=== PATIENT | male | born 1950 | race Caucasian/White ===

== ENCOUNTER 2025-01-26 18:05 | Emergency (ER) | payer MEDICARE, MEDICAID, SELFPAY ==
[2025-01-26 18:16] VITALS: BP 136/85; PULSE 90; TEMP 36.5; O2SAT 96; BMI 36.6
--- NOTE | 2025-01-26 18:24 | ECG_ITS ---
[facility]: 2025-[facility]26 Pat Name: Shree Hernandez Department: Room: Gender: Male Print Buyer: : 1950 Requested By: Aida Jennings Order Number: [id number] Blaine MD: Manpreet Hernandez M.D. Measurements Intervals [place] Rate: 95 P: 33 [place]: 150 QRS: 9 QRSD: 94 T: 32 QT: 344 QTc: 433 Interpretive Statements SINUS RHYTHM WITH OCCASIONAL SUPRAVENTRICULAR PREMATURE COMPLEXES No previous ECG available for comparison Electronically Signed On 01-26-2025 19:14:34 CDT by Manpreet Hernandez M.D. [email or web address]
[2025-01-26] MEDS: ondansetron 2 mg/ML SDV 2 mL 4 MG IVP (18:37)
[2025-01-26 18:43] LABS: Hematocrit 47.9 % (37-53); Hemoglobin 16.60 g/dL (11.27-16.99); Mean Corpuscular HGB Conc 34.7 g/dL (30-55); Mean Corpuscular Hemoglobin 30.4 pg (27-33); Mean Corpuscular Volume 87.7 fl (82-101); Red Blood Count 5.46 10^6/uL (3.85-5.65); White Blood Count 8.30 10^3/uL (3.29-11.43)
[2025-01-26 18:44] LABS: Nucleated Red Blood Cells % 0 %; Platelet Count 98 10^3/cmm (157-399)
[2025-01-26 18:45] VITALS: BP 129/81; PULSE 93; O2SAT 92
--- NOTE | 2025-01-26 18:51 | W.ED.NAVMDI ---
HPI - Nausea/Vomiting/Diarrhea General: Chief complaint: Nausea/Vomiting/Diarrhea Stated complaint: Sent over by PCP Time Seen by Provider: 01/26/25 18:24 History of Present Illness: Patient is a 74-year-old gentleman with history of HTN, HLD, sees primary Dr. Soto that presented to the emergency room with nausea, vomiting, diarrhea since Saturday, 3 days ago. Patient denies recent antibiotics. Patient has not had any fevers. No sick contacts. Initiated symptoms: Saturday Patient did not have nausea and vomiting today. He had loose stool x 1. No abdominal pain. No abdominal surgeries. Oxygen saturation in the room is 91% on room air. Associated nausea: Yes Associated symtoms: Reports nausea; Denies change in vision, chest pain, headache(s) or palpitations Related Data Previous Rx's ?Medication ?Instructions ?Recorded ondansetron 4 mg disintegrating 4 mg PO Q8H PRN nausea and 01/26/25 tablet vomiting 4 days #14 tabs Allergies Allergy/AdvReac Type Severity Reaction Status Date / Time No Known Allergies Allergy Verified 01/26/25 18:22 Review of Systems General: Reports: 10 or more systems reviewed and unremarkable except in HPI and below Const: Denies: fever(s) or chills Eyes: Denies: change in vision or blurry vision ENMT: Denies: throat pain or post nasal drip Card: Denies: chest pain or palpitations Resp: Denies: dyspnea or non-productive cough GI: Reports: nausea, vomiting and diarrhea; Denies: abdominal pain or belching : Denies: flank pain or difficulty urinating (Somewhat chronically given BPH.) Musc: Denies: neck pain, back pain or joint swelling Skin/Breast: Denies: rash or pruritus Neuro: Denies: headache(s) or numbness in extremities Physical Exam Const: COMMON NORMALS: no acute distress, average body habitus and patient oriented x3 HENMT: COMMON NORMALS: normocephalic, atraumatic and hearing grossly normal bilaterally HEAD & SCALP: normocephalic and atraumatic Neck/C-Spine: COMMON NORMALS: full ROM and no lymphadenopathy Lymph: LYMPHATIC: no lymphadenopathy noted Chest: COMMONS NORMALS: normal inspection of the chest and normal palpation of entire chest wall Resp: COMMON NORMALS: normal respiratory effort, No retractions and clear to auscultation bilaterally AUSCULTATION: clear to auscultation bilaterally Cardio: COMMON NORMALS: regular rate and regular rhythm RATE: regular rate RHYTHM: regular rhythm GI: COMMON NORMALS: Normal to inspection, nondistended, normoactive bowel sounds present, Soft to palpation, non-tender and No hepatosplenomegaly present PALPATION: Yes Soft to palpation and Yes No hepatosplenomegaly present : COMMON NORMALS: Yes no CVA tenderness BLADDER/KIDNEY EXAM: Yes no CVA tenderness Back/Pelvis: COMMON NORMALS: no CVA tenderness and thoracic and lumbar spine normal to inspection Extremity: COMMON NORMALS: normal to inspection, full ROM and capillary refill normal Neuro: COMMON NORMALS: patient oriented x3 Psych: COMMON NORMALS: mental status grossly normal, Normal thought process present and cooperative THOUGHT PROCESS: Normal thought process present Course Vital Signs: Vital signs: Vital Signs Temperature 97.7 F 01/26/25 18:16 Pulse Rate 88 01/26/25 20:13 Blood Pressure 124/76 01/26/25 20:13 Pulse Oximetry 94 01/26/25 20:13 Oxygen Delivery Me thod Room Air 01/26/25 19:00 MDM - Nausea/Vomiting/Diarrhea Medical Decision Making Patient is 19-year-old male that comes in with nausea, vomiting x 3 days. He has not had any recent antibiotics or sick contact. On physical exam findings, only notable is his oxygen saturation is a little bit on the lower side. His Mallampati is a 3 however. This could be chronic and associated with sleep apnea. Will do further workup with acute abdominal series even though he does not have abdominal pain to ensure there is no additional etiology. No recent colonoscopy Medical Records I reviewed the patient's medical records. Lab Data 01/26/25 18:30 01/26/25 18:30 Radiology Impressions Chest/Abdomen X-ray 01/26/25 18:55 IMPRESSION: No acute findings. Laboratory Results WBC 8.30 10^3/uL (3.29-11.43) 01/26/25 18:30 RBC 5.46 10^6/uL (3.85-5.65) 01/26/25 18:30 Hgb 16.60 g/dL (11.27-16.99) 01/26/25 18:30 Hct 47.9 % (37-53) 01/26/25 18:30 MCV 87.7 fl (82-101) 01/26/25 18: MCH 30.4 pg (27-33) 01/26/25 18: MCHC 34.7 g/dL (30-55) 01/26/25 18: RDW 13.6 % (12.1-15.1) 01/26/25 18:30 Plt Count 98 10^3/cmm (157-399) L 01/26/25 18: MPV 11.3 fL (7.4-10.4) H 01/26/25 18:30 Neut % (Auto) 75.4 % 01/26/25 18: Lymph % (Auto) 12.0 % 01/26/25 18: Whiteside % (Auto) 10.8 % 01/26/25 18: Eos % (Auto) 0.7 % 01/26/25 18: Baso % (Auto) 0.4 % 01/26/25 18: Neut # (Auto) 6.25 10^3/uL (1.8-7.7) 01/26/25 18:30 Lymph # (Auto) 1.0 10^3/uL (0.8-4.8) 01/26/25 18: Whiteside # (Auto) 0.9 10^3/uL (0.2-0.9) 01/26/25 18:30 Eos # (Auto) 0.1 10^3/uL (0.0-0.8) 01/26/25 18: Baso # (Auto) 0.0 10^3/uL (0.0-0.1) 01/26/25 18: Nucleated RBC % (auto) 0 % 01/26/25 18: Nucleated RBCs # 0.0 /100WBC 01/26/25 18:30 Sodium 131 mmol/L (136-145) L 01/26/25 18: Potassium 3.5 mmol/L (3.5-5.1) 01/26/25 18:30 Chloride 95 mmol/L (98-107) L 01/26/25 18:30 Carbon Dioxide 19 mmol/L (22-29) L 01/26/25 18: Anion Gap 20.5 (5-19) H 01/26/25 18: BUN 24 mg/dL (8-23) H 01/26/25 18: Creatinine 1.1 mg/dL (0.7-1.2) 01/26/25 18: GFR Calculation Not Reportable 01/26/25 18: Glucose 165 mg/dL (65-115) H 01/26/25 18:30 Calculated Osmolality 280 mOsm/kg (285-295) L 01/26/25 18: Lactic Acid 1.3 mmol/L (0.5-2.2) 01/26/25 18: Calcium 9.4 mg/dL (8.5-10.5) 01/26/25: Magnesium 2.1 mg/dL (1.7-2.3) 01/26/25: Total Bilirubin 1.1 mg/dL (0.15-1.2) 01/26/25 18: AST 32 U/L (0-40) 01/26/25 18: ALT 45 U/L (0-41) H 01/26/25 18: Alkaline Phosphatase 113 U/L (40-130) 01/26/25 18: Ammonia 37 umol/L (16-60) 01/26/25 18: NT-Pro-B Natriuret Pep 152 pg/mL (0-125) H 01/26/25 18: Total Protein 7.4 g/dL (6.6-8.7) 01/26/25 18: Albumin 3.9 g/dL (3.5-5.2) 01/26/25 18: Globulin 3.5 g/dL (1.3-4.6) 01/26/25 18: Lipase 24 U/L (13-60) 01/26/25 18: Procalcitonin 0.34 ng/mL (0-0.5) 01/26/25 18: Urine Color Lindsay (Yellow) A 01/26/25 Urine Appearance Clear (CLEAR) 01/26/25 Urine pH 5.5 (5-7) 01/26/25: Ur Specific Kent 1.036 (1.005-1.030) H 01/26/25: Urine Protein 1+ (Negative) A 10/21/25 19:25 Urine Glucose (UA) 3+ (Normal) H 01/26/25 19: Urine Ketones 1+ (Negative) H 01/26/25 19:25 Urine Blood Negative (Negative) 01/26/25 19: Urine Nitrate Negative (Negative) 01/26/25 19: Urine Bilirubin Negative (Negative) 01/26/25 19: Urine Urobilinogen 1.0 mg/dL (Negative) 01/26/25 19: Ur Leukocyte Esterase Negative (Negative) 01/26/25 19:25 Urine RBC 0-2 /hpf (0-2) 01/26/25 19:25 Urine WBC 0-5 /hpf (0-5) 01/26/25 19:25 Ur Squamous Epith Cells 0-5 /hpf (0-5) 01/26/25 19: Amorphous Sediment Not Reportable 01/26/25 19:25 Urine Bacteria None seen /hpf (NONE) 01/26/25 19: Hyaline Casts 12.41 /lpf 01/26/25 19:25 Influenza A (PCR) Negative (Negative) 01/26/25 18:46 Influenza Type B (PCR) Negative (Negative) 01/26/25 18:46 RSV (PCR) Negative (Negative) 01/26/25 18:46 SARS-CoV-2 (PCR) Negative (Negative) 01/26/25 18:46 XR interpretation done by ED provider, pending radiology final review ED provider radiology interpretation(s): no acute changes EKG Data EKG 1: Interpretation: Normal sinus rhythm, normal axis, PAC, no ST segment elevation, QTc 397, rate 95 Discharge Plan Discharge Patient Disposition: Home Clinical Impression: Gastroenteritis, Thrombocytopenia, Metabolic acidosis Condition: Stable Prescriptions: New ondansetron 4 mg tablet,disintegrating 4 mg PO Q8H PRN (Reason: nausea and vomiting) 4 Days Qty: 14 0RF Discharge Orders: Discharge ED (Routine); Ordered 01/26/25 Ordered By: Aida Jennings Referrals: Leonard Soto DO [Primary Care Provider, [facility]] - 1-3 days Referral Note: f/up CBC Clinical Impression: Thrombocytopenia Discharge Diet: Clear Liquid Patient Instructions: Clear Liquid Diet, Patient Portal & [place] Instructions Activity Restrictions/Additional Instructions: - Only clear liquid diet for 24 hours. If you tolerate the clear liquid diet for 24 hours, you may advance it to a full liquid diet, then a bland diet. - Zofran has been sent to the pharmacy. Follow the label instructions. - Return to ED with worsening nausea, vomiting, diarrhea. - You need to follow-up with your primary care physician regarding today's visit. Please call tomorrow to make an appointment for follow-up -You do need to call them tomorrow to follow-up on your CBC before the weekend - Debrox can be obtained [id number] for your right ear clogged up to help with your selective hearing :) Print Language: Amharic Coding Level of Care Code ED Government Teacher for Derek Cuellar
--- OUTSIDE RECORDS SUMMARY | 2025-01-26 18:54 | XMS_ITS | Clinical Summary ---
Author Organization [facility] Address [address] [place] [address] Phone Care Team Providers Care Production Team Manager Name Role Phone Leonard Soto Primary Care Provider +1- [phone] Allergies Active Allergy Reactions Criticality Noted Date Comments Penicillins Unknown 04/19/2009 Medications atenolol (TENORMIN) 50 mg Oral tablet Take 50 mg by mouth daily. Active tramadol (ULTRAM) 50 mg Oral tablet Take 1 Tab by mouth every 6 hours as needed for Pain. 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 Gender Identity Not on file Sexual Orientation Not on file Last Filed Vital Signs Vital Sign Reading Time Taken Comments Blood Pressure 168/76 04/19/2009 1:44 PM RESIDENTIAL CASE MANAGER Pulse 59 04/19/2009 1:44 PM RESIDENTIAL CASE MANAGER Temperature 37.1 C (98.7 F) 04/19/2009 12:35 PM RESIDENTIAL CASE MANAGER Respiratory Rate 20 04/19/2009 1:44 PM RESIDENTIAL CASE MANAGER Oxygen Saturation 97% 04/19/2009 1:44 PM RESIDENTIAL CASE MANAGER Inhaled Oxygen Concentration - - Weight 154.2 kg (340 lb) 04/19/2009 12:35 PM RESIDENTIAL CASE MANAGER Height 177.8 cm (5' 10 ) 04/19/2009 12:35 PM RESIDENTIAL CASE MANAGER Body Mass Index 48.78 04/19/2009 12:35 PM RESIDENTIAL CASE MANAGER Plan of Treatment Health Maintenance Due Date Last Done Comments DTAP/TDAP/TD VACCINES (1 - Tdap) 07/12/1971 COLORECTAL SCREENING 1997 Colorectal Cancer Screening 1997 FIT-DNA Q 3 years 1997 FIT/FOBT Q 1 year 1997 Flex Sig/CT Colonography Q 5 years 1997 PNEUMOCOCCAL VACCINE 50+ YEARS (1 of 1 - PCV) 07/12/19 03 ZOSTER VACCINE (1 of 2) 2002 INFLUENZA VACCINE (#1) 2024 RSV VACCINE (60+ or ) (1 - 1-dose 75+ series) 07/12/2027 Insurance MEDICAID [place] Care Teams Production Team Manager Relationship Specialty Start Date End Date Leonard Soto DO PCP - General 04/19/09
--- OUTSIDE RECORDS SUMMARY | 2025-01-26 18:54 | XMS_ITS | Clinical Summary ---
Author Organization [facility] Address [address] Attn: [place] [address] Care Team Providers Care Metal Finish Inspector Name Role Phone Leonard Soto DO Primary Care Provider +1- [phone] Allergies Active Allergy Reactions Criticality Noted Date Comments Penicillins Unknown 04/19/2009 Medications No known medications Active Problems No known active problems Social History Tobacco Use Types Packs/Day Years Used Date Smoking Tobacco: Never Assessed Sex and Gender Information Value Date Recorded Sex Assigned at Not on file Legal Sex Male 10:59 AM TECHNICAL SALES DIRECTOR Gender Identity Not on file Sexual Orientation Not on file Plan of Treatment Health Maintenance Due Date [...] - 1-dose 75+ series) 07/12/2027 Insurance MEDICAID [facility] DUAL COMPLETE PPO [facility] [id number] Care Teams Metal Finish Inspector Relationship Specialty Start Date End Date Leonard Soto DO [address] [place] [address] PCP - General 04/19/09
[2025-01-26 18:55] LABS: Lactic Sepsis W/Reflex 1.3 mmol/L (0.5-2.2)
--- NOTE | 2025-01-26 18:55 | XRR_ITS ---
PROCEDURE INFORMATION: Exam: XR Abdomen Exam date and time: 01/26/2025 7:05 PM Age: 74 years old Clinical indication: Nausea and vomiting; Additional info: N/v/d, hypoxia TECHNIQUE: Imaging protocol: Radiologic exam of the abdomen. Views: 2 Views. Upright and supine views. COMPARISON: l spine FINDINGS: Lungs: No focal consolidation or other acute appearing pulmonary opacity. Pleural spaces: No pleural effusion or pneumothorax noted. Heart/Mediastinum: There is no cardiomegaly. Gastrointestinal tract: no dilated bowel loops. Intraperitoneal space: There is no free intraperitoneal gas. Bones/joints: No acute osseous abnormality. Other findings: Left lower lobe atelectasis versus scarring. XR/XR acute abdomen series [id number] IMPRESSION: No acute findings.
[2025-01-26 19:00] VITALS: BP 113/82; PULSE 81; O2SAT 92
[2025-01-26 19:02] LABS: Ammonia 37 umol/L (16-60)
[2025-01-26 19:13] LABS: NT Pro B Type Natriuretic Pept 152 pg/mL (0-125); Procalcitonin 0.34 ng/mL (0-0.5)
[2025-01-26 19:25] LABS: Alanine Aminotransferase 45 U/L (0-41); Albumin Level 3.9 g/dL (3.5-5.2); Alkaline Phosphatase 113 U/L (40-130); Blood Urea Nitrogen 24 mg/dL (8-23); Calcium 9.4 mg/dL (8.5-10.5); Carbon Dioxide 19 mmol/L (22-29); Chloride 95 mmol/L (98-107); Creatinine Clr Calc Pharmacy 79.7609; Globulin 3.5 g/dL (1.3-4.6); Glucose 165 mg/dL (65-115); Lipase 24 U/L (13-60); Magnesium 2.1 mg/dL (1.7-2.3); Osmolality Calculated 280 mOsm/kg (285-295); Sodium 131 mmol/L (136-145); Total Protein 7.4 g/dL (6.6-8.7)
[2025-01-26 19:28] LABS: Anion Gap 20.5 (5-19); Aspartate Amino Transferase 32 U/L (0-40); Potassium 3.5 mmol/L (3.5-5.1)
[2025-01-26 19:39] LABS: Glucose Urine UA 3+ (Normal); Nitrate Urine Negative (Negative)
[2025-01-26 19:44] LABS: Add Urine Microscopic? YES
[2025-01-26 19:48] LABS: Specific Gravity, Urine 1.036 (1.005-1.030)
[2025-01-26 19:56] LABS: Respiratory Syncytial Virus Ce NEGATIVE (Negative); SARS-CoV-2 PCR NEGATIVE (Negative)
[2025-01-26 20:13] VITALS: BP 124/76; PULSE 88; O2SAT 94
== END 2025-01-26 20:14 | disposition home or self-care (01) ==
PROVIDERS: Emergency Provider Physician Assistant; Family Provider Family Medicine; PCP Family Medicine
DX: K52.9 Noninfective gastroenteritis and colitis, unspecified (principal); D69.6 Thrombocytopenia, unspecified; E87.20 Acidosis, unspecified; Z11.52 Encounter for screening for COVID-19
CPT/HCPCS: 36415; 74022; 80053; 81001; 82140; 83605; 83690; 83735; 83880; 84145; 85025; 87637; 93005; 96361; 96374; 99285; J2405; J7120